=== PATIENT | female | born 1935 | race Two or more races ===

== ENCOUNTER 2021-02-22 10:40 | Inpatient (IN) | payer OTHER ==
[~2021-02-22] VITALS: Ht 172.7 cm; Wt 136.1 kg
[2021-02-22 10:42] VITALS: BP 85/21
[2021-02-22] MEDS ORDERED: NOREPINEPHRINE 8 MG/250ML KIT 250 ML IV ONE (10:54)
[2021-02-22] MEDS ORDERED: AMIODARONE HCL 150 MG in D5W 5% 100 ML IV ONE (11:00)
[2021-02-22] MEDS ORDERED: NOREPINEPHRINE 8 MG/250ML KIT 250 ML IV SCH (11:00)
[2021-02-22] MEDS ORDERED: AMIODARONE 450mg/250ml AE 250 ML IV SCH (11:15)
[2021-02-22 11:24] LABS: Hematocrit 36.6 % (36.0-46.0); Mean Corpuscular Hemoglobin 23.5 pg (28.0-32.0); Mean Corpuscular Hgb Conc. 27.4 g/dL (32.0-36.0); Mean Corpuscular Volume 85.7 fL (80.0-100.0); Red Blood Cells 4.26 10^6/uL (4.0-5.20); White Blood Cell 6.3 10^3/uL (4.4-10.8)
[2021-02-22 11:25] LABS: Red Cell Distribution Width 23.9 % (11.8-14.3)
[2021-02-22 11:27] LABS: Basophils % (manual) 0 (0.0-2.0); Blast Cells 0; Myelocytes % 0; Promyelocytes % 0; Reactive Lymphocytes 0
[2021-02-22 11:45] LABS: Band Neutrophils % (manual) 6; Eosinophils % (manual) 2 (0-7); Lymphocytes % (manual) 67 (10.0-50.0); Metamyelocytes % 1; Monocytes % (manual) 4 (0-12)
[2021-02-22] MEDS ORDERED: SODIUM BICARBONATE 8.4% INJ 50ML SYRINGE ONE (11:46)
[2021-02-22] MEDS ORDERED: FUROSEMIDE 40 MG/4 ML VIAL IV ONE (12:00)
[2021-02-22] MEDS ORDERED: FUROSEMIDE 40 MG/4 ML VIAL ONE (12:01)
[2021-02-22] MEDS ORDERED: DOPamine 1600MCG/ML D5W 250 ML IV ONE ×2 (12:30→12:36)
[2021-02-22 12:49] VITALS: BP 76/36
[2021-02-22 12:57] LABS: INR 1.38 (0.9-1.15); Partial Thromboplastin Time 33.3 sec (23.6-33.0)
[2021-02-22 14:14] VITALS: BP 95/38
[2021-02-22] MEDS ORDERED: MORPHINE SULFATE INJECTION 2 MG/ML SYRG IV PRN (14:30)
[2021-02-22] MEDS ORDERED: NITROGLYCERIN 0.4 MG SL TAB SL PRN (14:30)
[2021-02-22] MEDS ORDERED: MEROPENEM 1GM IVPB 100 ML IV SCH (15:00)
[2021-02-22 16:39] LABS: Albumin 3.1 g/dL (3.4-5.0); Calcium 9.2 mg/dL (8.5-10.1); Magnesium 3.3 mg/dL (1.6-2.6); Potassium 4.5 mmol/L (3.5-5.1)
[2021-02-22 16:44] LABS: Bilirubin, Total 0.6 mg/dL (0.2-1.0); Total Protein 7.2 g/dL (6.4-8.2)
[2021-02-22] MEDS ORDERED: VASOPRESSIN 50 UNITS in D5W 5% 247.5 ML IV SCH (17:00)
[2021-02-22] MEDS ORDERED: SODIUM CHLORIDE 0.9% 1,000 ML IV ONE (17:00)
[2021-02-22] MEDS ORDERED: VANCOMYCIN PER PHARMACY 0 MG IV SCH (17:00)
[2021-02-22] MEDS ORDERED: VANCOMYCIN 1GM/250ML 250 ML IV ONE (17:15)
[2021-02-22 18:34] VITALS: BP 122/50
[2021-02-22 20:00] VITALS: BP 87/45
[2021-02-22] MEDS ORDERED: CALCIUM CHLOR(10%) 100MG/ML 10ML SYRINGE IV ONE (20:49)
[2021-02-22] MEDS ORDERED: EPINEPHrine HCL 1 MG/10 ML SYRG IV ONE (20:49)
[2021-02-22] MEDS ORDERED: SODIUM BICARBONATE 8.4% INJ 50ML SYRINGE IV ONE (20:49)
[2021-02-22] MEDS ORDERED: HEPARIN SODIUM (PORCINE) 5000 UNITS/ML 1ML VIAL SC SCH (22:00)
== END 2021-02-22 20:50 | DRG 208 ==
LOC: EDBD 10:40 → ER 10:40 → TELE 14:20
PROVIDERS: ADMIT Internal Medicine; ATTEND Internal Medicine
PROC: 5A1935Z Respiratory Ventilation, Less than 24 Consecutive Hours (ICD-10-PCS; principal; 2021-02-22)
PROC: 0BH17EZ Insertion of Endotracheal Airway into Trachea, Via Natural or Artificial Opening (ICD-10-PCS; 2021-02-22)
PROC: 5A12012 Performance of Cardiac Output, Single, Manual (ICD-10-PCS; 2021-02-22)
PROC: 02HV33Z Insertion of Infusion Device into Superior Vena Cava, Percutaneous Approach (ICD-10-PCS; 2021-02-22)
PROC: 4A143B0 Monitoring of Venous Pressure, Central, Percutaneous Approach (ICD-10-PCS; 2021-02-22)
DX: J96.20 Acute and chronic respiratory failure, unspecified whether with hypoxia or hypercapnia (principal); I21.4 Non-ST elevation (NSTEMI) myocardial infarction; I50.33 Acute on chronic diastolic (congestive) heart failure; Z68.42 Body mass index [BMI] 45.0-49.9, adult; I46.9 Cardiac arrest, cause unspecified; I11.0 Hypertensive heart disease with heart failure; E11.9 Type 2 diabetes mellitus without complications; D64.9 Anemia, unspecified; E66.01 Morbid (severe) obesity due to excess calories; I95.9 Hypotension, unspecified; J44.9 Chronic obstructive pulmonary disease, unspecified; Z20.822 Contact with and (suspected) exposure to COVID-19; Z79.82 Long term (current) use of aspirin; Z99.81 Dependence on supplemental oxygen
CPT/HCPCS: 31500; 36415; 36556; 36600; 71045; 80053; 82728; 82805; 83735; 84484; 85007; 85027; 85379; 85610; 85730; 86141; 87070; 87205; 87426; 92950; 93005; 93306; 94002; 99291; G0378; J2185; J7060